=== PATIENT | female | born 1965 | race Caucasian/White ===

== ENCOUNTER 2019-08-20 10:15 | Outpatient (CLI) | payer OTHER, SELFPAY ==
--- NOTE | ~2019-08-20 | MM_ITS ---
EXAMINATION: MM screening [facility] BI w nicolas HISTORY: Screening mammogram TECHNIQUE: Craniocaudal and mediolateral oblique 3-D tomosynthesis images were obtained and synthetic 2-D images were generated. CAD analysis was submitted and interpreted. COMPARISON: Comparison to multiple prior studies sequentially, with oldest reviewed study dated 11/04. BREAST PARENCHYMAL COMPOSITION: There are scattered areas of fibroglandular density. FINDINGS: There are benign breast calcifications. There is no evidence of suspicious mass, calcificat ion, or architectural distortion to suggest malignancy in either breast. There has been no suspicious interval change. IMPRESSION: 1. No mammographic evidence of malignancy. 2. Recommend routine screening mammography in one year. BI-RADS Category 2: Benign finding(s). Reviewed, dictated and finalized at location A.
== END 2019-08-20 10:16 | disposition home or self-care (01) ==
LOC: ANHIMG 10:17
PROVIDERS: PCP Internal Medicine; Visit Provider Obstetrics & Gynecology
DX: Z12.31 Encounter for screening mammogram for malignant neoplasm of breast (principal)
CPT/HCPCS: 77063; 77067

== ENCOUNTER 2019-12-09 16:30 | Emergency (ER) | payer OTHER, SELFPAY ==
--- NOTE | ~2019-12-09 | XR_ITS ---
EXAMINATION: XR knee LT min 4V DATE: 12/09/2019 16:57 INDICATION: Medial left knee pain post fall TECHNIQUE: Anteroposterior, 2 oblique and crosstable lateral views of the left knee were obtained COMPARISON: None. FINDINGS: Alignment is normal. No fracture. Small central subchondral body versus focus of meniscal chondrocal cinosis at the lateral margin of the lateral compartment. Small marginal osteophytes in all 3 compart ments consistent with at least mild osteoarthritis. Joint spaces appear relatively preserved however narrowing can be underestimated on nonweightbearing imaging. Moderate-sized left knee joint effusion without layering lipohemarthrosis. IMPRESSION: 1. Moderate-sized left knee joint effusion without evident acute osseous abnormality. Reviewed, dictated and finalized at location A. IMPRESSION: 1. Moderate-sized left knee joint effusion without evident acute osseous abnorm ality.
[2019-12-09 16:45] VITALS: BP 139/84; PULSE 78; RESP 20; TEMP 36.6; O2SAT 97
--- NOTE | 2019-12-09 16:47 | ED.LOWEXIN ---
HPI - Extremity Injury (Lower) General Chief Complaint: Extremity Injury, Lower Stated Complaint: left leg injury Source: patient Mode of arrival: ambulatory History of Present Illness HPI Narrative: Patient presents for evaluation of left knee pain. She decayed she was running outdoors in the rain in flip-flops approximately 2 weeks ago when she slipped. Her left leg felt beneath her. She is noted some soreness in the affected area since that time. Her discomfort was worse with extension of the left knee. Yesterday, she was riding a bicycle, and mindful of keeping her knee in a somewhat flexed position. After the bicycle ride she noticed significant worsening of her pain. She currently rates her pain 10 in severity, described as sharp and constant. Pain is now worse with extension or full flexion of the left knee. No radicular component. No paresthesias. She tried taking 600 mg of ibuprofen with some improvement in her pain thereafter. Related Data Home Medications Medication Instructions Recorded Confirmed alprazolam [Xanax] 0.5 mg PO TID PRN 04/14/19 12/09/19 nebivolol [Bystolic] 5 mg PO DAILY 04/14/19 12/09/19 omeprazole magnesium [Prilosec] 10 mg PO BID 12/09/19 12/09/19 Allergies Allergy/AdvReac Type Severity Reaction Status Date / Time meperidine Allergy Mild Confusion Verified 10/03/19 13:16 Review of Systems Review of Systems: Narrative: CONSTITUTIONAL: Denies fever, chills, or sweats. EYES: Denies visual changes, redness, or discharge. ENT: Denies rhinorrhea, congestion, sore throat, or otalgia. CARDIOVASCULAR: Denies chest pain, palpitations, or edema. RESPIRATORY: Denies cough or dyspnea. GASTROINTESTINAL: Denies abdominal pain, nausea, vomiting, or diarrhea. GENITOURINARY: Denies dysuria or hematuria. SKIN: Denies rash or itching. MUSCULOSKELETAL: Denies back pain or myalgia. Reports left knee pain and swelling NEUROLOGIC: Denies headache, numbness, dizziness, or weakness. PSYCHIATRIC: Denies anxiety or depression. [facility] Past Medical History Medical History Anxiety CPAP (continuous positive airway pressure) dependence GERD (gastroesophageal reflux disease) MVP (mitral valve prolapse) Sleep apnea Ulcer Surgical History Surgical History H/O section History of surgical removal of ganglion cyst Hx of cholecystectomy Social History Social History Smoking status: Never smoker Alcohol intake: current Gender identity (if verbalized by the patient): Female Exam Narrative: Exam Narrative: GENERAL: Well-appearing, well-nourished, and in no acute distress. HEAD: Normocephalic, atraumatic. EYES: PERRLA and EOMI. ENT: Nares clear, no rhinorrhea or epistaxis. Mucous membranes moist. Oropharynx without tonsillar hypertrophy exudate or other lesions. Bilateral TMs pearly metcalf nonbulging NECK: Supple. No adenopathy or masses. No carotid bruits or JVD CHEST: Clear to auscultation. No respiratory distress. No wheezes rales or rhonchi HEART: Regular rate and rhythm. No murmur heard. Normal peripheral pulses. ABDOMEN: Soft, nontender, nondistended, normal active bowel sounds. EXTREMITIES: Normal range of motion. Left knee is not tender to palpation. There is trace swelling noted to anterior aspect of left knee. + Crepitus in bilateral knees. Negative anterior and posterior drawer. SKIN: Warm, dry, no rash. NEURO: No focal deficits. Alert and oriented x3. PSYCH: Normal mood and affect. Course Vital Signs Vital signs: Vital Signs Temperature 36.6 C 12/09/19 16:45 Pulse Rate 78 12/09/19 16:45 Respiratory Rate 20 12/09/19 16:45 Blood Pressure 139/84 12/09/19 16:45 Pulse Oximetry 97 12/09/19 16:45 Temperature 36.6 C 12/09/19 16:45 Pulse Rate 78 12/09/19 16:45 Respiratory Rate 20
[2019-12-09] MEDS: KETOROLAC (*BKC) 60 MG/2 ML VIAL IM (16:51)
== END 2019-12-09 17:16 | disposition home or self-care (01) ==
PROVIDERS: Emergency Provider Nurse Practitioner; PCP Internal Medicine
DX: S86.912A Strain of unspecified muscle(s) and tendon(s) at lower leg level, left leg, initial encounter (principal); W01.0XXA Fall on same level from slipping, tripping and stumbling without subsequent striking against object, initial encounter; F41.9 Anxiety disorder, unspecified; K21.9 Gastro-esophageal reflux disease without esophagitis; I34.1 Nonrheumatic mitral (valve) prolapse; G47.30 Sleep apnea, unspecified
CPT/HCPCS: 73564; 96372; 99213; G0463; J1885

== ENCOUNTER 2019-12-17 12:54 | Outpatient (CLI) | payer OTHER, SELFPAY ==
--- NOTE | ~2019-12-17 | MR_ITS ---
EXAMINATION: MR knee LT wo con DATE: 12/17/2019 13:45 INDICATION: Left knee joint effusion, pain, swelling and instability post fall 3 weeks prior. TECHNIQUE: Magnetic resonance imaging (MRI) of the left knee was performed without intravenous contra st. Sequences included coronal PD-weighted FSE, coronal PD-weighted FS FSE, sagittal T2-weighted FSE , sagittal PD-weighted FS FSE and axial PD weighted fat saturated FSE. COMPARISON: None. FINDINGS: Medial compartment: Medial meniscus is normal. Deep chondral fissuring along the anterior to central weightbearing medial femoral condyle with normal scattered underlying cortical irregularity. Additional partial thickness chondral fissuring along the anteromedial aspect of the medial tibial plateau. Lateral compartment: Small likely radial tear involving the inner third of the junction of the body and posterior horn of the lateral meniscus best appreciated on axial series 4, image 14. Sagittally oriented band of partia l-thickness chondral ulceration involving up to 50% the cartilage thickness and without degenerative subarticular changes at the posterior weightbearing lateral femoral condyle. Patellofemoral compartment: Partial-thickness chondral ulceration and deep fissuring extending a band across the midportion of th e medial and lateral patellar facets and intervening apical ridge as well as along portions of the me dial trochlea, inferior aspect of the trochlear groove and inferomedial aspect of the lateral trochle a. Tiny focus of subarticular edema at the lateral patellar facet. Ligaments and tendons: Anterior and posterior cruciate ligaments are normal. Mild thickening of the proximal medial collater al ligament without increased signal or surrounding edema consistent with mild scarring related to ch ronic sprain. The fibular collateral ligament is normal. The extensor mechanism is normal. The visual ized medial and lateral hamstring tendons as well as the iliotibial band are normal. Fluid: Large left knee joint effusion without layering lipohemarthrosis. There is mild synovitis along the m argins of the suprapatellar pouch. 4 x 3 mm loose osteochondral body at the lateral gutter of the sup rapatellar pouch. Additional 2 x 3 mm loose osteochondral body at the posterior recess of the lateral compartment. Both are visible on the prior radiograph. Osseous/other: Bone alignment is normal. No fracture or pathologic marrow replacing process. Small marginal osteophy paula in all 3 compartments. IMPRESSION: 1. Partial thickness radial tear along the inner third of the junction of the body and posterior horn of the lateral meniscus. 2. Mild tricompartmental osteoarthritis with moderate grade chondromalacia in the lateral compartment and high-grade chondromalacia in the medial and patellofemoral compartments. 3. Large knee joint effusion with couple small loose osteochondral bodies at the suprapatellar pouch and posterior recess of the lateral compartment. Reviewed, dictated and finalized at location B. IMPRESSION: 1. Partial thickness radial tear along the inner third of the junction of the b elizabeth and posterior horn of the lateral meniscus. 2. Mild tricompartmental osteoarthritis with moderate grade chondromalacia in t he lateral compartment and high-grade chondromalacia in the medial and patellof emoral compartments. 3. Large knee joint effusion with couple small loose osteochondral bodies at th e suprapatellar pouch and posterior recess of the lateral compartment.
== END 2019-12-17 12:55 | disposition home or self-care (01) ==
PROVIDERS: PCP Internal Medicine; Visit Provider Orthopaedic Surgery
DX: M25.462 Effusion, left knee (principal); M17.12 Unilateral primary osteoarthritis, left knee
CPT/HCPCS: 73721

== ENCOUNTER 2019-12-25 10:16 | Outpatient (CLI) | payer OTHER, SELFPAY ==
--- NOTE | 2019-12-25 10:18 | ECG_ITS ---
Measurements Intervals [place] Rate: 72 P: 21 [place]: 160 QRS: 2 QRSD: 86 T: 38 QT: 377 QTc: 413 Interpretive Statements SINUS RHYTHM POOR R WAVE PROGRESSION, ANTERIOR LEADS BORDERLINE ECG Electronically Signed On 12-25-2019 11:37:19 CDT by Yoni Coronado D.O.
== END 2019-12-25 10:17 | disposition home or self-care (01) ==
LOC: ANHSURGERY 10:18
PROVIDERS: PCP Internal Medicine; Visit Provider Orthopaedic Surgery
DX: I10 Essential (primary) hypertension (principal); R94.31 Abnormal electrocardiogram [ECG] [EKG]
CPT/HCPCS: 93005

== ENCOUNTER 2019-12-26 00:52 | Outpatient (CLI) | payer OTHER, SELFPAY ==
[2019-12-26 19:20] LABS: SARS-CoV-2 RNA PCR Negative
== END 2019-12-26 00:53 | disposition home or self-care (01) ==
LOC: ANHCOVIDDT 00:52
PROVIDERS: PCP Internal Medicine; Visit Provider Orthopaedic Surgery
DX: Z01.812 Encounter for preprocedural laboratory examination (principal); Z20.828 Contact with and (suspected) exposure to other viral communicable diseases
CPT/HCPCS: 87635; C9803; U0003

== ENCOUNTER 2019-12-28 01:29 | Day surgery (SDC) | payer OTHER, SELFPAY ==
[2019-12-21 10:09] VITALS: BMI 31.7
--- NOTE | 2019-12-26 12:15 | PM.IMHP ---
H&P: HPI History of Present Illness Date/Time: 12/26/19 12:15 <ARIADNA Mathew - Last Filed: 12/26/19 12:23> Chief complaint: Lose Bodies Left Knee/ OA Left Knee <ARIADNA Mathew - Last Filed: 12/26/19 12:23> Narrative: Joanne Garland is a 54 year old [address] Of Dr. cyrus coello presents today for arthroscopy her left knee with loose body removal. She fell approximately 4 weeks ago while running in the rain. She slipped falling with her left knee in a figure 4 position. She had immediate pain in the knee. She is unable to bear weight and also noticed it is very painful for her to try to straighten her knee out she had been using a walker and partial weight-bearing since time. She has been taking Motrin 600 mg twice a day to try to improve her symptoms. She was initially evaluated by Dr. Fierro on 12/12/2019. Initial x-rays demonstrated possible loose body in her knee. She was sent for an MRI scan which did confirm the patient had 2 loose bodies in the knee 1 in the lateral gutter, and 1 in the posterior recess of the lateral compartment. These loose bodies correspond to the 1 seen on the radiographs. She remains having severe pain in the knee and difficulty with straightening, Dr. fierro discussed the option of arthroscopy with loose body removal patient presents today for that <ARIADNA Mathew - Last Filed: 12/26/19 12:23> Review of Systems Review of Systems: All systems reviewed & are unremarkable except as noted in HPI and below <ARIADNA Mathew - Last Filed: 12/26/19 12:23> [facility] Past Medical History Medical History: Medical History Anxiety CPAP (continuous positive airway pressure) dependence GERD (gastroesophageal reflux disease) MVP (mitral valve prolapse) Sleep apnea Ulcer <ARIADNA Mathew - Last Filed: 12/26/19 12:23> Surgical History Surgical History: Surgical History H/O section History of surgical removal of ganglion cyst Hx of cholecystectomy <ARIADNA Mathew - Last Filed: 12/26/19 12:23> Family History Family History: Family History Father Hypertension Family history of diabetes mellitus in first degree relative Family history of heart disease in male family member before age 55 Mother Hypertension Family history of diabetes mellitus in first degree relative Family history of heart disease in male family member before age 55 Other Family history of cardiovascular disease <ARIADNA Mathew - Last Filed: 12/26/19 12:23> Social History Social History: Social History Smoking status: Never smoker Alcohol intake: current Gender identity (if verbalized by the patient): Female Spiritual care concerns: No <ARIADNA Mathew - Last Filed: 12/26/19 12:23> Meds Home Medications and Allergies Home medications: Home Medications Medication Instructions Recorded Confirmed Type alprazolam [Xanax] 0.5 mg PO TID PRN 04/14/19 12/28/19 History nebivolol [Bystolic] 5 mg PO DAILY 04/14/19 12/28/19 History cyclobenzaprine 10 mg PO TID #12 tablet 12/09/19 12/28/19 Rx omeprazole magnesium [Prilosec] 10 mg PO BID 12/09/19 12/28/19 History Ca carb-D3-mag [id number] 1 tablet PO DAILY 12/21/19 12/28/19 History [Caltrate + D3 Plus Minerals] <ARIADNA Mathew - Last Filed: 12/26/19 12:23> Allergies/Adverse reactions: Allergies Allergy/AdvReac Type Severity Reaction Status Date / Time meperidine AdvReac Mild LIGHTHEADED, Verified 12/28/19 11:17 FELT HORRIBLE <ARIADNA Mathew - Last Filed: 12/26/19 12:23> Exam Narrative: Exam Narrative: 54-year-old female very alert pleasant in no distress. He walks with a walker and partial weight-bearing on the left leg.
[2019-12-28] VITALS (10 sets, daily range): BP systolic 102–130; BP diastolic 54–84; PULSE 60–88; RESP 12–20; TEMP 36.4–36.6; O2SAT 95–100
--- NOTE | ~2019-12-28 | XR_ITS ---
EXAMINATION: XR surgery orthopedic DATE: 12/28/2019 13:38 INDICATION: Loose body removal at the left knee TECHNIQUE: 7 fluoroscopic spot images of the left knee were obtained during procedure performed by Dr Rachna Fierro. Radiologist was not present for the imaging or procedure. The amount of fluoroscopy time u sed during this procedure was 1.7 minutes. COMPARISON: MRI dated 12/17/2019 and radiographs dated 12/09/2019 FINDINGS: Images demonstrate arthroscopic segmentation projecting over the knee. On the initial images the prev ious noted loose body at the lateral gutter of the suprapatellar pouch be seen and appears to been ex tracted on the final images. The fabella projects posterior to the lateral femoral condyle. No other loose osteochondral bodies identified. Bone alignment is normal. No fracture. Marginal osteophytes in the medial and lateral compartments consistent with at least mild osteoarthritis. IMPRESSION: 1. Fluoroscopy utilized during this body removal from the suprapatellar pouch of the left knee. See p rocedure note for further detail. Reviewed, dictated and finalized at location A. IMPRESSION: 1. Fluoroscopy utilized during this body removal from the suprapatellar pouch o f the left knee. See procedure note for further detail.
[2019-12-28] MEDS: LACTATED RINGERS 1,000 ML 30 ML IV CONT ×2 (11:07→13:45)
[2019-12-28] MEDS: KETOROLAC 15 MG/ML VIAL (*BKC) IV PUSH (11:12)
[2019-12-28] MEDS: ACETAMINOPHEN 500 MG TABLET 1000 MG PO (11:13)
--- NOTE | 2019-12-28 11:20 | WPDANESEPPF ---
Anes - Initial Pre Proc Eval Procedure: Operation Date: 12/28/19 12:30 Proposed Procedures p Left Knee Arthroscopy, Removal Of Loose Bodies, Proceed As Indicated - Compa Fierro MD Date/Time: 12/28/19 11:20 Surgeon: Compa Fierro MD Pre Op Diagnosis: Lose Bodies Left Knee/ OA Left Knee Patient Data Age: 54 Gender: F Height: 5 ft 4 in Weight: 83.91 kg Allergies Allergy/AdvReac Type Severity Reaction Status Date / Time meperidine AdvReac Mild LIGHTHEADED, Verified 12/28/19 11:17 FELT HORRIBLE Home Medications Medication Instructions Recorded Confirmed Type alprazolam [Xanax] 0.5 mg PO TID PRN 04/14/19 12/28/19 History nebivolol [Bystolic] 5 mg PO DAILY 04/14/19 12/28/19 History cyclobenzaprine 10 mg PO TID #12 tablet 12/09/19 12/28/19 Rx omeprazole magnesium [Prilosec] 10 mg PO BID 12/09/19 12/28/19 History Ca carb-D3-mag [id number] 1 tablet PO DAILY 12/21/19 12/28/19 History [Caltrate + D3 Plus Minerals] Patient hx anesthesia problems: post op nausea/vomiting Family hx anesthesia problems: post op nausea/vomiting PMFSH Past Medical History Medical History Anxiety CPAP (continuous positive airway pressure) dependence GERD (gastroesophageal reflux disease) MVP (mitral valve prolapse) Sleep apnea Ulcer Surgical History Surgical History H/O section History of surgical removal of ganglion cyst Hx of cholecystectomy Family History Family History Father Hypertension Family history of diabetes mellitus in first degree relative Family history of heart disease in male family member before age 55 Mother Hypertension Family history of diabetes mellitus in first degree relative Family history of heart disease in male family member before age 55 Other Family history of cardiovascular disease Social History Social History Smoking status: Never smoker Alcohol intake: current Gender identity (if verbalized by the patient): Female Spiritual care concerns: No Anes - Eval Final PreProcedure Day of Procedure 12/28/19 11:20 Patient weight: obese Heart: regular rate and rhythm Lungs: clear to auscultation Airway: Mallampati scale class III Neurological: alert and oriented Last oral intake: >/= 8 hours ASA classification: III Emergent: no Anesthetic plan: proceed Anesthesia type and monitoring: general LMA and standard monitoring Informed Consent: The patient's anesthetic plan and its attendant risks and benefits were discussed with the patient/family/POA. Questions were solicited and answers provided to the satisfaction of the patient/family/POA.
[2019-12-28] MEDS: SCOPOLAMINE 1.5 MG PATCH TRANSDERM (11:34)
--- NOTE | 2019-12-28 11:54 | WPDHPUPDATE1 ---
History and Physical Update Update Date/Time: 12/28/19 11:54 History and Physical has been reviewed, including an updated exam of the patient. There are NO changes in the patient's condition. Risks, benefits, and alternatives have been discussed and questions answered. Patient agrees to proceed with procedure.
[2019-12-28] MEDS: ceFAZolin 2 GM/D5W 50 ML 2 GM/50 ML BAG IVPB (12:01)
[2019-12-28] MEDS: LIDO 1%/EPINEPHRINE 1:100,000 20 ML VIAL INFILTRATE (12:34)
--- NOTE | 2019-12-28 13:54 | PM.PROC ---
Procedure Note - Detailed Date of procedure: 12/28/19 Pre-op diagnosis: Lose Bodies Left Knee/ OA Left Knee Post-op diagnosis: same Procedure performed: Arthroscopic removal of 1 loose body and chondroplasty medial femoral condyle left knee Description of procedure: patient brought to the operating room general anesthesia was administered left knee prepped draped usual fashion. The she received 2 g of Ancef preoperatively. We did not elevate the tourniquet during the procedure. 3 cc 1% lidocaine were used in the portals for analgesia. Standard arthroscopic portals were placed. The medial compartment was inspected 1st. Medial meniscus was intact and there are no loose bodies identified the medial compartment. There was mild thinning of articular cartilage and a sagittal band the medial tibial plateau. There was fairly extensive grade 3 to grade 4 cartilage loss in a sagittal band of the medial femoral condyle. On the edges of this trough were loose flaps of articular cartilage which we conservatively debrided with a motorized shaver. The ACL and PCL were normal. There are no loose bodies on either side of the cruciate ligaments. The anterior fat pad was carefully inspected and no loose bodies identified. Mild to moderate degree of synovitis was noted throughout the knee. The lateral compartment showed mild depression in the sagittal band in the medial femoral condyle but without cartilage loss. It seemed to be impressed there. The lateral meniscus showed some maceration of the inner margin that junction of posterior horn and midbody but no true tearing. We carefully evaluated around the lateral compartment and the popliteal hiatus was probed and we looked under and over the lateral meniscus and could not find a loose body. The MRI scan suggested it was in the far posterior recess be 90 PCL and that was probably the loose body that on the original x-rays projected over the lateral joint space On the AP x-ray that we could not see on the MRI scan. we inspected the lateral gutter and I could see what looked like a loose body imbedded into the lateral synovium loosely. The medial gutter was inspected and a prominent medial osteophyte was encountered along the posterior the distal aspect of the medial femoral condyle but this was not loose. The suprapatellar pouch was thoroughly search for loose bodies and there is a suprapatellar pouch foramen and visualizing through that membrane showed no loose bodies above this either. I brought in fluoro and we could clearly see the ossific density the we saw on the lateral gutter on the initial x-rays and subsequent MRI scan and a needle localization this confirmed that this was the loose body that was imbedded on the surface of the synovial membrane over the lateral retinaculum. We brought the arthroscope in confirming that the needle was directly on that fragment and we made a 6 mm incision over the far lateral aspect of the lateral retinaculum and inserted a straight hemostat with which we were able to grab the loose body and remove it without difficulty. We confirmed the absence of the ossific density bone on C-arm in the lateral gutter. We used the mini-C-arm to give us lateral fluoroscopic view and it appeared that that there was a small ossific density that projected in the posterior most aspect of the intercondylar notch posterior to the cruciate ligaments and the fabella was noted. There was no ossific density anteriorly her posterior to the joint line itself. II reintroduced the arthroscope and we viewed on either side of the cruciate ligaments and utilized a 70 degree scope as well and I could not identify the location of this loose body which I felt was more proximal than we could see through the joint space. I should mention that we did a look at the patellofemoral joint there was diffuse chondromalacia of the trochlea and central grade 2 chondromalacia of the patella. The portals were closed with 5 0 nylon suture and t
== END 2019-12-28 16:08 | disposition home or self-care (01) ==
PROVIDERS: PCP Internal Medicine; Visit Provider Orthopaedic Surgery
PROC: (CPT 29870; principal; 2019-12-28 12:30)
DX: M23.42 Loose body in knee, left knee (principal); M17.12 Unilateral primary osteoarthritis, left knee; M65.862 Other synovitis and tenosynovitis, left lower leg; M22.42 Chondromalacia patellae, left knee; I34.1 Nonrheumatic mitral (valve) prolapse; G47.33 Obstructive sleep apnea (adult) (pediatric); F41.9 Anxiety disorder, unspecified; E66.9 Obesity, unspecified; Z68.31 Body mass index [BMI] 31.0-31.9, adult
CPT/HCPCS: 29877; 88300; 88311; A9270; J0690; J1100; J1885; J2250; J2405; J2704; J3010; J7120

== ENCOUNTER 2020-05-14 08:24 | Outpatient (CLI) | payer OTHER, SELFPAY ==
--- NOTE | 2020-05-14 | EST_ITS ---
Patient Info Name: Joanne Garland Age: 54 years : 1965 Gender: Female Ht: 64 in Wt: 190 lbs BSA: 2.01 m2 Exam Date: 05/14/2020 10:24 AM Exam Location: [facility] Stress Patient Status: Outpatient Admit Date: 05/14/2020 Staff Ordering Physician: Mary Walter MD Attending Provider: Mary Walter MD Exercise Technologist: Bebeto Bonner RDCS, RT Exercise Physician: Mak Parisi MD Exam Type: CA stress yamilet w NM Study Info A regadenoson stress test was performed. Summary 1. Please correlate with nuclear medicine images, reported separately. 2. No abnormal ST-T wave changes with lexiscan. Protocol: Lexiscan Stress ECG Details Stage: REST Duration (min): 7 min : 19 sec HR (bpm): 76 SBP (mmHg): --- DBP (mmHg): --- Stage: REST Duration (min): 11 min : 45 sec HR (bpm): 79 SBP (mmHg): 137 DBP (mmHg): 93 Stage: STAGE 1 Duration (min): 0 min : 59 sec HR (bpm): 102 SBP (mmHg): 137 DBP (mmHg): 93 Stage: RECOVERY Duration (min): 1 min : 0 sec HR (bpm): 99 SBP (mmHg): 137 DBP (mmHg): 93 Stage: RECOVERY Duration (min): 2 min : 0 sec HR (bpm): 96 SBP (mmHg): 151 DBP (mmHg): 91 Stage: RECOVERY Duration (min): 3 min : 0 sec HR (bpm): 90 SBP (mmHg): 143 DBP (mmHg): 92 Stage: RECOVERY Duration (min): 4 min : 0 sec HR (bpm): 88 SBP (mmHg): 143 DBP (mmHg): 92 Stage: RECOVERY Duration (min): 4 min : 17 sec HR (bpm): --- SBP (mmHg): 143 DBP (mmHg): 92 Rest HR: 79 bpm Peak HR: 102 bpm Rest Sys BP: 137 mmHg Peak Sys BP: 151 mmHg Max Pred HR: 167 bpm % Max Pred HR: 61 % Target HR: 142 bpm Max RPP: 15,402 bpm*mmHg Target HR Summary: Hemodynamic response to exercise was normal BP Response: Normal blood pressure response Termination Reason: Completed protocol Cardiac Symptoms: None Total Time: 1 min : 0 sec Rest Kelley BP: 93 mmHg Peak Kelley BP: 91 mmHg Total Dose: 0.4 mg Resting ECG Normal sinus rhythm. Stress ECG No abnormal ST/T wave changes with exercise. Arrhythmias None. Report Signatures
--- NOTE | ~2020-05-14 | NM_ITS ---
EXAMINATION: NM yamilet stress w perfusion DATE: 05/14/2020 12:02 INDICATION: Precordial chest pain. TECHNIQUE: Rest images were obtained following intravenous administration of 9.3 mCi Tc99m tetrofosmi n (Myoview). The patient was infused intravenously with Lexiscan (regadenoson). Then, 29.5 mCi Tc99m tetrofosmin (Myoview) was administered intravenously, and stress images were obtained. Data was recon structed into short axis and horizontal and vertical long axis SPECT images. Gated SPECT images were also obtained. COMPARISON: None. FINDINGS: There is no definite reversible or fixed perfusion abnormality to suggest ischemia or infar ction. There is no segmental wall motion abnormality. Left ventricular ejection fraction measures > 70%. IMPRESSION: 1. No definite ischemia or infarct. 2. Normal left ventricular ejection fraction measuring >70%. Reviewed, dictated and finalized at location A. CH LANGUAGE SPECIALIST
== END 2020-05-14 08:25 | disposition home or self-care (01) ==
PROVIDERS: PCP Internal Medicine; Visit Provider Internal Medicine Cardiovascular Disease
DX: R07.2 Precordial pain (principal)
CPT/HCPCS: 78452; 93017; A9502; J2785

== ENCOUNTER 2020-08-26 07:55 | Outpatient (CLI) | payer OTHER, SELFPAY ==
--- NOTE | ~2020-08-26 | MM_ITS ---
EXAMINATION: MM screening britney BI w nicolas HISTORY: Screening mammogram TECHNIQUE: Craniocaudal and mediolateral oblique 3-D tomosynthesis images were obtained and synthetic 2-D images were generated. CAD analysis was submitted and interpreted. COMPARISON: 08/20/2019, 06/01/2017, 02/11/2016 bilateral digital screening mammogram examinations BREAST PARENCHYMAL COMPOSITION: There are scattered areas of fibroglandular density. FINDINGS: No suspicious mass or architectural distortion is evident. New upper outer quadrant right breast microcalcifications are noted; diagnostic right mammogram with magnification views is recommended, with ultrasound if required. IMPRESSION: 1. New upper outer quadrant right breast microcalcifications. 2. Diagnostic right mammogram with magnification views is recommended, with ultrasound if required. BI-RADS Category 0: Incomplete: Needs additional imaging evaluation. Reviewed, dictated and finalized at location A. IMPRESSION: 1. New upper outer quadrant right breast microcalcifications. 2. Diagnostic right mammogram with magnification views is recommended, with ult rasound if required. BI-RADS Category 0: Incomplete: Needs additional imaging evaluation.
== END 2020-08-26 07:56 | disposition home or self-care (01) ==
PROVIDERS: PCP Internal Medicine; Visit Provider Obstetrics & Gynecology
DX: Z12.31 Encounter for screening mammogram for malignant neoplasm of breast (principal); R92.8 Other abnormal and inconclusive findings on diagnostic imaging of breast
CPT/HCPCS: 77063; 77067

== ENCOUNTER 2020-09-22 11:58 | Outpatient (CLI) | payer OTHER, SELFPAY ==
--- NOTE | ~2020-09-22 | MMUS_ITS ---
EXAMINATION: MM diagnostic mammo unilat RT, US breast RT complete HISTORY: Upper-outer quadrant right breast microcalcifications TECHNIQUE: Additional 3-D ML tomosynthesis images of the right breast were performed and synthetic 2- D images were generated. ML, MLO and cc magnification views. CAD analysis was submitted and interpret ed. High resolution complete right breast ultrasound was performed. COMPARISON: 08/26/2020, 08/2019, bilateral digital screening mammogram examinations FINDINGS: MAMMOGRAPHIC FINDINGS: Multiple scattered microcalcifications are noted, largely punctate and circular, occasionally oval. No suspicious mass or architectural distortion is evident. ULTRASOUND: Complete right breast ultrasound examination reveals no suspicious mass or shadowing. No significant sonographic finding. IMPRESSION: 1. Probably benign microcalcifications 2. 6 month diagnostic right mammogram follow-up with magnification views is recommended. BI-RADS category 3, probably benign findings. Reviewed, dictated and finalized at location A. IMPRESSION: 1. Probably benign microcalcifications 2. 6 month diagnostic right mammogram follow-up with magnification views is rec ommended. BI-RADS category 3, probably benign findings.
== END 2020-09-22 11:59 | disposition home or self-care (01) ==
PROVIDERS: PCP Internal Medicine; Visit Provider Obstetrics & Gynecology
DX: R92.8 Other abnormal and inconclusive findings on diagnostic imaging of breast (principal)
CPT/HCPCS: 76641; 77065

== ENCOUNTER 2021-07-08 11:16 | Outpatient (CLI) | payer OTHER, SELFPAY ==
--- NOTE | ~2021-07-08 | MMUS_ITS ---
EXAMINATION: MM diagnostic britney RT w nicolas, US breast RT limited HISTORY: Six-month follow-up of probably benign microcalcifications TECHNIQUE: ML, MLO and craniocaudal 3-D tomosynthesis images of the right breast were performed and s ynthetic 2-D images were generated. Medications ML, MLO and CC views. CAD analysis was submitted and interpreted. High resolution upper o uter and lower outer quadrant right breast ultrasound was performed. COMPARISON: 09/22/2020 diagnostic right mammogram and complete right breast ultrasound BREAST PARENCHYMAL COMPOSITION: There are scattered areas of fibroglandular density. FINDINGS: MAMMOGRAPHIC FINDINGS: There is an increased number of microcalcifications in the upper outer quadrant of the right breast, pleomorphic in nature, some linear, with minimal branching. These are suspicious. Stereotactic biopsy is recommended. ULTRASOUND: 6:00 1 cm from nipple: Circumscribed parallel 3.4 x 3.8 mm sonolucency with through transmission, lik jennifer a cyst 9:00 6 cm from nipple: Parallel circumscribed hypoechoic 2.3 x 3.3 mm lesion without internal vascula rity or shadowing. IMPRESSION: 1. Suspicious microcalcifications, upper outer right breast 2. Stereotactic biopsy is recommended. BI-RADS category 4, suspicious findings. Dr. Munoz telephoned the report and stereotactic biopsy recommendation on 07/08/2021 at 1332 hours to rodrigo Menontionist. She promised to pass the message to Dr. Chan (who was not available, nor was his Ehs Engineer available, at time of call.) Reviewed, dictated and finalized at location A. IMPRESSION: 1. Suspicious microcalcifications, upper outer right breast 2. Stereotactic biopsy is recommended. BI-RADS category 4, suspicious findings. Dr. Munoz telephoned the report and stereotactic biopsy recommendation on 022 at 1332 hours to rodrigo Martíneztionist. She promised to pass the message to Dr. Chan (who was not available, nor was his Ehs Engineer available, a t time of call.) IMPRESSION: 1. Suspicious microcalcifications, upper outer right breast 2. Stereotactic biopsy is recommended. BI-RADS category 4, suspicious findings. Dr. Munoz telephoned the report and stereotactic biopsy recommendation on 022 at 1332 hours to Tanya, diamond wheel molder. She promised to pass the message to Dr. Chan (who was not available, nor was his Ehs Engineer available, a t time of call.)
== END 2021-07-08 11:17 | disposition home or self-care (01) ==
PROVIDERS: PCP Internal Medicine; Visit Provider Obstetrics & Gynecology
DX: N63.14 Unspecified lump in the right breast, lower inner quadrant (principal); R92.0 Mammographic microcalcification found on diagnostic imaging of breast
CPT/HCPCS: 76642; 77061; 77065; G0279

== ENCOUNTER 2021-08-04 12:34 | Outpatient (CLI) | payer OTHER, SELFPAY ==
[2021-08-04 13:11] LABS: Alanine Aminotransferase 30 U/L (4-35); Albumin Level 4.4 g/dL (3.5-5.1); Alkaline Phosphatase 64 U/L (38-126); Anion Gap 9 mmol/L (8-16); Aspartate Amino Transferase 30 U/L (14-36); Bilirubin,Total 0.2 mg/dL (0.2-1.3); Blood Urea Nitrogen 17 mg/dL (7-17); Calcium 8.8 mg/dL (8.4-10.2); Carbon Dioxide 24 mmol/L (22-30); Chloride 107 mmol/L (98-107); Estimated Glomerular Filt Rate > 60; Glucose 100 mg/dL (65-110); Potassium 3.9 mmol/L (3.4-5.0); Sodium 140 mmol/L (137-145)
== END 2021-08-04 12:35 | disposition home or self-care (01) ==
PROVIDERS: PCP Internal Medicine; Visit Provider Internal Medicine Cardiovascular Disease
DX: E78.2 Mixed hyperlipidemia (principal); I10 Essential (primary) hypertension
CPT/HCPCS: 36415; 80053; 84443

== ENCOUNTER 2024-04-19 15:17 | Outpatient (CLI) | payer BC, SELFPAY ==
[2024-04-19 15:53] LABS: Alanine Aminotransferase 24 U/L (6-35); Albumin Level 4.4 g/dL (3.5-5.1); Alkaline Phosphatase 91 U/L (38-126); Anion Gap 5 mmol/L (4-12); Aspartate Amino Transferase 24 U/L (14-36); Bilirubin,Total 0.6 mg/dL (0.2-1.3); Blood Urea Nitrogen 20 mg/dL (7-17); Carbon Dioxide 28 mmol/L (22-30); Chloride 104 mmol/L (98-107); Estimated Glomerular Filt Rate > 60; Glucose 103 mg/dL (65-110); Sodium 137 mmol/L (137-145)
== END 2024-04-19 15:18 | disposition home or self-care (01) ==
LOC: ANHLAB 15:19
PROVIDERS: PCP Physician Assistant Medical; Visit Provider Internal Medicine
DX: I10 Essential (primary) hypertension (principal)
CPT/HCPCS: 36415; 80053

== ENCOUNTER 2025-04-16 12:49 | Outpatient (CLI) | payer BC, SELFPAY ==
--- NOTE | ~2025-04-16 | US_ITS ---
US soft tissue head and neck 04/16/2025 13:10 Indication: Localized swelling. Palpable left neck lump. Procedure: Soft tissue ultrasound of the left submandibular region Comparison: No prior studies for comparison. Findings: There are multiple lymph nodes in the left submandibular location all with normal fatty hilum. Largest lymph node measures 1.7 x 0.9 x 0.8 cm without significant effacement of the fatty hilum. There are additional normal-appearing right submandibular lymph nodes measuring up to 9 mm. Impression: 1: Mildly prominent left submandibular lymph nodes, likely reactive. Reviewed, dictated and finalized at location O. TICAL GEOGRAPHER Impression: 1: Mildly prominent left submandibular lymph nodes, likely reactive.
== END 2025-04-16 12:50 | disposition home or self-care (01) ==
LOC: MICIMG 12:50
PROVIDERS: PCP Physician Assistant Medical; Visit Provider Nurse Practitioner Family
DX: R59.0 Localized enlarged lymph nodes (principal)
CPT/HCPCS: 76536